=== PATIENT | male | born 1970 | race Caucasian/White ===

== ENCOUNTER 2020-08-21 17:03 | Emergency (ER) | payer OTHER, SELFPAY ==
[2020-08-21 17:10] VITALS: BP 133/83; PULSE 91; RESP 16; TEMP 36.1; O2SAT 99; BMI 30.8
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
[2020-08-21] MEDS: HYDROMORPHONE 1 MG INJ IM (17:29)
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
[2020-08-21] MEDS: HYDROCODONE/ACET 5/325 TABLET 1 TAB PO (18:28)
[2020-08-21 18:43] VITALS: BP 121/78; PULSE 80; RESP 18; TEMP 36.6; O2SAT 97
== END 2020-08-21 18:44 | disposition home or self-care (01) ==
PROVIDERS: Emergency Provider Emergency Medicine; PCP Family Medicine; Referring Provider Family Medicine
DX: S63.502A Unspecified sprain of left wrist, initial encounter (principal); V86.52XA Driver of snowmobile injured in nontraffic accident, initial encounter; Z87.81 Personal history of (healed) traumatic fracture
CPT/HCPCS: 73090; 73110; 96372; 99283; 99284; J1170

== ENCOUNTER → 2020-09-02 19:26 | Outpatient (CLI) | payer OTHER, SELFPAY ==
--- NOTE | 2020-09-02 19:28 | DI.MRI.S_ITS ---
PROCEDURE: MR WRIST LT WO CON INDICATIONS: LEFT WRIST PAIN TECHNIQUE: Noncontrast coronal proton density fast spin echo and T2 fast spin echo with fat saturation; coronal 3-D gradient echo, axial T1 spin echo and T2 fast spin echo with fat saturation, sagittal T1 spin echo through the wrist. COMPARISON: [facility], CR, XR WRIST LT MIN 3V, 08/21/2020, 17:29. FINDINGS: Image quality: Excellent. Bones and cartilage: Chronic appearing ulnar styloid fracture with no associated marrow edema. However, there is marked marrow edema present within the proximal and distal poles of the scaphoid. Possible nondisplaced fracture line seen within the proximal pole on image 15/6. There is mild edema present within the capitate and trapezoid, to a much lesser extent. Additional marrow edema present within the base of the 2nd metacarpal, mild. Carpal ligaments: The scapholunate and lunotriquetral ligaments appear intact. In the absence of intra-articular contrast, the extrinsic carpal ligaments are not well identified. On sagittal images, the pisohamate ligament appears intact. Triangular fibrocartilage complex: The triangular fibrocartilage appears intact. The adjacent meniscal homolog appears normal in the absence of intra-articular contrast. The extensor carpi ulnaris tendon is normal in location and morphology. Tendons and soft tissues: The carpal tunnel structures appear normal, including the median nerve. The ulnar nerve appears normal within Guyon's canal. Mild extensor carpi radialis longus and brevis tenosynovitis. No soft tissue ganglion cysts. IMPRESSION: Marked scaphoid marrow edema, suspicious for nondisplaced radiographically occult fracture as detailed above (versus severe marrow contusion). Mild extensor carpi radialis longus and brevis tenosynovitis Dictated by: Gavin Ordoñez M.D. on 09/03/2020 at 11:45 Approved by: Gavin Ordoñez M.D. on 09/03/2020 at 11:54
== END ==
PROVIDERS: PCP Family Medicine; Referring Provider Family Medicine; Visit Provider Family Medicine
DX: M25.532 Pain in left wrist (principal); M67.832 Other specified disorders of synovium, left wrist
CPT/HCPCS: 73221

== ENCOUNTER 2024-04-25 13:28 | Day surgery (SDC) | payer OTHER, SELFPAY ==
[2024-04-25 13:53] VITALS: BP 108/74; PULSE 66; RESP 12; TEMP 36.3; O2SAT 95
--- NOTE | 2024-04-25 14:28 | P.HP_ITS ---
History of Present Illness History of Present Illness Date Patient Seen: 04/25/24 Time Patient Seen: 14:28 Chief complaint: SDC Narrative: Jose is a 53-year-old man in need of colon cancer screening. He also has hemorrhoids. See the office note from February for details. [facility] Medical History (Updated 04/25/24 @ 14:29 by Brad English MD) Celiac artery dissection Healthy adult Family History (Updated 03/06/24 @ 14:34 by Brent Agosto RN) Father Hypertension Diabetes mellitus Heart disease Brother Hypertension Social History Smoking Status: Never smoker alcohol intake: current Meds Home Medications and Allergies Home Medications Medication Instructions Recorded Confirmed Type aspirin 81 mg tablet,delayed 81 mg PO DAILY 03/06/24 04/25/24 History release carvedilol 12.5 mg tablet 12.5 mg PO BID 03/06/24 04/25/24 History famotidine 20 mg tablet 20 mg PO DAILY 03/06/24 04/25/24 History rabeprazole 20 mg tablet,delayed 40 mg PO DAILY 03/06/24 04/25/24 History release rosuvastatin 20 mg tablet 20 mg PO DAILY 03/06/24 04/25/24 History Allergies Allergy/AdvReac Type Severity Reaction Status Date / Time No Known Drug Allergies Allergy Verified 04/25/24 13:42 Exam Vital Signs (past 8 hours): - 04/25/24 13:53 Temperature 97.3 F L Pulse Rate 66 Respiratory Rate 12 Blood Pressure 108/74 Pulse Oximetry 95 Oxygen Delivery Method Room Air Oxygen Delivery Method Room Air Const General: No acute distress Resp Effort & Inspection: normal respiratory effort Assessment & Plan Assessment and plan (1) Colon cancer screening: Status: Acute (2) Hemorrhoids: Qualifiers: Hemorrhoid type: second degree Qualified Code(s): K64.1 - Second degree hemorrhoids Status: Acute Plan Colonoscopy with rubber-band ligation of internal hemorrhoids Time-Based Coding :: [TOTAL MINUTES] spent with patient and on the chart (including review of chart, obtaining history, exam, reviewing outside data, placing orders, documenting exam and treatment plan, and counseling patient) on [DATE].
--- NOTE | 2024-04-25 15:39 | PM.OP.COLON ---
Operative Date/Time/Diagnoses Date of procedure: 04/25/24 Time of procedure: 15:39 Pre-op diagnosis: Colon cancer screening and internal hemorrhoids Post-op diagnosis: same Procedure & Clinicians Study performed: Colonoscopy Rubber-band ligation of internal hemorrhoids Same procedure as scheduled: Yes Surgeon: Brad English Procedure Notes Procedure in detail: Surgeon: Brad English MD Anesthesia: Hiram Brower [employer] Procedure: The patient was brought to the endoscopy suite, placed in left lateral decubitus position. The patient was connected to monitoring devices. A time-out was performed. Sedation was administered. Once the patient was adequately sedated, a digital rectal exam was performed. Internal and external hemorrhoids were noted. The scope was then inserted and advanced to the cecum where the appendiceal orifice was identified and photographed. The scope was then slowly withdrawn over greater than 6 minutes. The mucosa was thoroughly inspected. No abnormalities were identified. The scope was retroflexed in the rectum. Internal hemorrhoids were noted. The scope was straightened and removed. Rubber-band ligation was performed of to internal hemorrhoid columns. The patient was awakened and brought to recovery. Scope withdrawal time: 10 minutes Sedation time: 17 minutes EBL: 0 Findings: Internal and external hemorrhoids Post-procedure Recommendations: Colonoscopy in 10 years Disposition: PACU
[2024-04-25 15:40] VITALS: BP 124/88; PULSE 71; RESP 18; TEMP 36.9; O2SAT 93
[2024-04-25 15:45] VITALS: BP 124/92; PULSE 66; RESP 17; O2SAT 95
[2024-04-25 15:50] VITALS: BP 131/96; PULSE 63; RESP 18; TEMP 36.7; O2SAT 95
[2024-04-25 15:56] VITALS: BP 142/87; PULSE 63; RESP 19; TEMP 36.7; O2SAT 95
== END 2024-04-25 16:09 | disposition home or self-care (01) ==
PROVIDERS: PCP Family Medicine; Referring Provider Surgery; Visit Provider Surgery
PROC: 0DJD8ZZ Inspection of Lower Intestinal Tract, Via Natural or Artificial Opening Endoscopic (ICD-10-PCS; CPT 45378; principal; 2024-04-25 14:45)
DX: Z12.11 Encounter for screening for malignant neoplasm of colon (principal); K64.8 Other hemorrhoids; K64.4 Residual hemorrhoidal skin tags
CPT/HCPCS: 45378; 46221; J2704

== ENCOUNTER 2024-12-05 10:12 | Emergency (ER) | payer OTHER, SELFPAY ==
[2024-12-05] VITALS (13 sets, daily range): BP systolic 105–153; BP diastolic 64–91; PULSE 61–83; RESP 14–25; TEMP 36.4; O2SAT 94–98; BMI 33.0
[2024-12-05] MEDS: ONDANSETRON 4 MG/2 ML INJ IV (10:26)
--- NOTE | 2024-12-05 10:28 | ED.GENADULT ---
HPI - General Adult General Chief complaint: Abdominal Pain Stated complaint: Groin area pain , Pressure can't pee or poop Time Seen by Provider: 12/05/24 10:19 History of Present Illness HPI narrative: 54-year-old gentleman with a history of reflux, hypertension, hyperlipidemia, history of celiac artery dissection woke up this morning initially feeling well then develop some low abdominal pain/pressure. He voided and had a bowel movement with minimal relief. Went to work and symptoms escalated. He had 2 additional episodes of stool with formed stools, no diarrhea. No relieved the pain. He has begun vomiting has had at least 3 emesis episodes. Eyes belly feels distended, tender over the suprapubic area and now complaining of bilateral flank pain right greater than left. Most recent void was dark with concerns for hematuria. He has never had similar symptoms. No prior history of kidney stones, appendicitis or colitis. He notes that he does have some slow urination but no difficulty initiating stream and does not complain of frequency or urgency Related Data Home Medications ?Medication ?Instructions ?Recorded ?Confirmed aspirin 81 mg tablet,delayed 81 mg PO DAILY 03/06/24 04/25/24 release carvedilol 12.5 mg tablet 12.5 mg PO BID 03/06/24 04/25/24 famotidine 20 mg tablet 20 mg PO DAILY 03/06/24 04/25/24 rabeprazole 20 mg tablet,delayed 40 mg PO DAILY 03/06/24 04/25/24 release rosuvastatin 20 mg tablet 20 mg PO DAILY 03/06/24 04/25/24 Previous Rx's ?Medication ?Instructions ?Recorded oxycodone-acetaminophen 5 mg-325 1 tab PO Q6H PRN pain #14 tabs 12/05/24 mg tablet Allergies Allergy/AdvReac Type Severity Reaction Status Date / Time No Known Drug Allergies Allergy Verified 12/05/24 10:26 Review of Systems Review of Systems Narrative: Pertinent positive and negative findings as per HPI Patient History Medical History Celiac artery dissection Healthy adult Family History Father Hypertension Diabetes mellitus Heart disease Brother Hypertension Social History Smoking Status: Unknown if ever smoked alcohol intake: current Exam Initial Vital Signs Initial Vital Signs: Vital Signs Temperature 97.5 F L 12/05/24 10:13 Pulse Rate 82 12/05/24 10:13 Respiratory Rate 16 12/05/24 10:13 Blood Pressure 153/91 H 12/05/24 10:13 Pulse Oximetry 98 12/05/24 10:13 Oxygen Delivery Method Room Air 12/05/24 10:13 General: Pale, appears unwell, actively vomiting, able to cooperate with exam HEENT: Moist mucous membranes, normal sclera with reactive pupils, Respiratory: Lungs are clear to auscultation, no wheezing no rales no rhonchi. Full and symmetrical air movement Cardiac: Regular rate and rhythm no murmurs no bruits Abdomen: Distended, low pubic tenderness, no flank pain to palpation at this time. No rebound or guarding Skin: Pale, mildly diaphoretic Neurologic: Grossly neurologically intact with no obvious asymmetries or abnormalities Extremities: No trauma, well perfused Psych: Cooperative, appropriate insight and affect Course Orders Ordered: ED Orders 12/05/24 10:20 Ictotest Urine Stat Urinalysis and Microscopic Stat 12/05/24 10:27 CT abdomen pelvis w con Stat Complete Blood Count AUTO DIFF Stat Comprehensive Metabolic Panel Stat Lactate (Lactic Acid) Stat Lipase Stat Magnesium Stat Hydromorphone HCl (Hydromorphone Hcl 0.5 Mg/0.5 Ml Syringe) 0.5 mg IV Q15MIN PRN PRN Reason: Pain, Last Admin: 12/05/24 12:52 Dose: 0.5 mg Documented By: Admin: 12/05/24 10:38 Dose: 0.5 mg Documented By: RB Discontinued Medications Sodium Chloride (Normal Saline 0.9%) 1,000 mls @ 1,000 mls/hr IV BOLUS ONE Stop: 12/05/24 11:25 Last Admin: 12/05/24 10:38 Dose: 1,000 mls/hr Documented By: RB Ketorolac Tromethamine (Ketorolac 30 Mg/Ml Vial) 15 mg IV NOW ONE Stop: 12/05/24 10:27 Last Admin: 12/05/24 10:37 Dose: 15 mg Documented By: RB Ondansetron HCl (Ondansetron 4 Mg/2 Ml Inj) 4 mg IV NOW ONE Stop: 12/05/24 10:25 Last Admin: 12/05/24 10:26 Dose: 4 mg Documented By: SOLEDAD Ondansetron HCl (Ondansetron 4 Mg/2 Ml Inj) 4 mg IV NOW ONE Stop: 12/05/24 10:27 Last Admin: 12/05/24 10:39 Dose: Not Given Documented By: RB Vital Signs Vital signs: Vital Signs - 8 hr 12/05/24 10:13 12/05/24 10:22 12/05/24 10:22 Temperature 97.5 F L Pulse Rate 82 75 Respiratory Rate 16 Blood Pressure 153/91 H 153/91 H Pulse Oximetry 98 98 Oxygen Delivery Method Room Air 12/05/24 10:44 12/05/24 10:46 12/05/24 10:46 Temperature Pulse Rate 71 70 Respiratory Rate Blood Pressure 133/79 Pulse Oximetry 97 97 Oxygen Delivery Method 12/05/24 11:00 12/05/24 11:00 12/05/24 11:28 Temperature Pulse Rate 73 80 Respiratory Rate 16 14 Blood Pressure 122/71 Pulse Oximetry 96 97 Oxygen Delivery Method 12/05/24 11:28 12/05/24 11:30 12/05/24 11:30 Temperature Pulse Rate 80 Respiratory Rate 16 Blood Pressure 126/86 126/85 Pulse Oximetry 98 Oxygen Delivery Method 12/05/24 12:00 12/05/24 12:00 12/05/24 12:30 Temperature Pulse Rate 70 66 Respiratory Rate 22 20 Blood Pressure 117/70 Pulse Oximetry 94 94 Oxygen Delivery Method 12/05/24 12:30 Temperature Pulse Rate Respiratory Rate Blood Pressure 105/66 Pulse Oximetry Oxygen Delivery Method Medical Decision Making Lab Data 12/05/24 10:27 12/05/24 10:27 Labs: Lab Results 12/05/24 12/05/24 Range/Units 10:20 10:27 WBC 13.8 H (4.5-11.0) X10^3/uL RBC 5.08 (4.5-5.9) X10^6/uL Hgb 15.5 (13.5-17.5) g/dL Hct 45.5 (41-53) % MCV 89.6 (80-100) fL MCH 30.6 (26-34) PG MCHC 34.1 (30-36) % RDW 13.6 (11.6-14.8) % Plt Count 195 (150-400) X10^3/uL Neut % (Auto) 80.7 H (50-75) % Lymph % (Auto) 10.7 L (25-40) % Benson % (Auto) 7.4 (3-14) % Eos % (Auto) 0.8 L (2-4) % Baso % (Auto) 0.4 (0-2) % Neut # (Auto) 24614 H (1712-4133) /uL Lymph # (Auto) 1500 (1675-5673) /uL Benson # (Auto) 1000 H (0-900) /uL Eos # (Auto) 100 (0-450) /uL Baso # (Auto) 100 (0-100) /uL Sodium 137 (137-145) mmol/L Potassium 4.4 (3.4-5.1) mmol/L Chloride 103 (98-107) mmol/L Carbon Dioxide 26 (22-32) mmol/L BUN 23 H (9-20) mg/dL Creatinine 0.94 (0.66-1.25) mg/dL Estimated GFR > 60 (>60) mL/min BUN/Creatinine Ratio 24.5 H (6-22) Glucose 140 H (70-99) mg/dL Lactate 0.9 (0.7-2.1) mmol/L Calcium 9.3 (8.4-10.2) mg/dL Magnesium 1.7 (1.6-2.3) mg/dL Total Bilirubin 0.9 (0.2-1.3) mg/dL AST 32 (17-59) IU/L ALT 34 (<50) IU/L Alkaline Phosphatase 103 (38-126) U/L Total Protein 7.9 (6.3-8.2) g/dL Albumin 4.6 (3.5-5.0) g/dL Globulin 3.3 (1.7-4.1) g/dL Albumin/Globulin Ratio 1.4 (1.0-2.8) Lipase 48 (23-300) U/L Urine Color Red Urine Appearance Cloudy Urine pH 5.0 (4.5-8.0) Ur Specific [place] 1.025 (1.000-1.035) Urine Protein 2+ H (Negative) Urine Glucose (UA) Negative (Negative) g/dL Urine Ketones Trace H (NEGATIVE) Urine Occult Blood 3+ H (Negative) Urine Nitrate Negative (Negative) Urine Bilirubin 1+ H (NEGATIVE) Ur Bilirubin Confirm Negative (Negative) Urine Urobilinogen 1.0 (0.2) E.U./dL Ur Leukocyte Esterase Negative (NEGATIVE) Urine RBC >100/hpf H (0-5/HPF) Urine WBC None seen (0-5/HPF) Ur Squamous Epith Cells None seen (0-5/HPF) Urine Bacteria None seen (None) Ur Culture Indicated? Cult not indicated Vol Urine Centrifuged 10ml (spun) Imaging Data CT scan - abdomen/pelvis: Radiologist's Impression: PROCEDURE: CT ABDOMEN PELVIS W CON INDICATIONS: low pelvic and Right flank pain TECHNIQUE: After the administration of intravenous contrast, axial sections acquired from the lung bases to the pubic symphysis. Coronal and sagittal reformats were performed. For radiation dose reduction, the following was used: automated exposure control, adjustment of mA and/or kV according to patient size. COMPARISON: None. FINDINGS: Image quality: Diagnostic. Lower Chest: No significant findings. ABDOMEN: Liver: No solid mass. Gallbladder: No radiopaque gallstones or wall thickening. Biliary ducts: No biliary dilation. Pancreas: No ductal dilation. Spleen: Size is within normal limits. Adrenal Glands: No adrenal nodules. Kidneys and Ureters: No definite hydronephrosis can be seen on either side. No hydroureter can be seen. Within the bladder near the left ureterovesicular junction, there is a 2-3 mm stone seen, as on series 2, image 133 and on series 3 image 57. Mild hydronephrosis is seen. No nonobstructing stones can be seen within either kidney. Water density bilateral renal cysts are incidentally noted. Stomach and Bowel: The stomach is decompressed at the time of this study, limiting its evaluation. No dilated loops of small bowel are seen. Colonic diverticulosis is seen, without findings of active diverticulitis. Peritoneum: No abnormal intraperitoneal fluid. No free air. Ventral Wall: A moderate periumbilical hernia is seen, containing fat. Abdominal Nodes: No retroperitoneal or mesenteric adenopathy by size criteria. Vessels: Aorta and inferior vena cava are normal in size. PELVIS: Pelvic Organs: Unremarkable. Bladder: No bladder wall thickening, accounting for underdistention. Pelvic Nodes: No enlarged lymph nodes. Miscellaneous: Bilateral fat containing inguinal hernias can be seen. Bones: No aggressive osseous abnormality. Bilateral L5 pars defects are seen, with grade 1 L5-S1 anterolisthesis. Focal L5-S1 degenerative change is seen. Milder degenerative changes are seen elsewhere. IMPRESSION: There is a 2-3 mm stone seen at the LEFT ureterovesicular junction. There is a mild degree of RIGHT-sided hydronephrosis. Given the history of right-sided flank pain, this is most likely a right-sided stone that has recently passed into the bladder and has come to rest on the left side. Bilateral L5 pars defects can be seen, with associated grade 1 anterolisthesis and focal degenerative change. Additional findings: Moderate fat containing periumbilical hernia Diverticulosis, without active diverticulitis Bilateral fat containing inguinal hernias Dictated by: Ramses Delgado M.D. on 12/05/2024 at 11:34 MDM Narrative Medical decision making narrative: CC: Acute lower abdominal pain with vomiting Complicating co-morbidities: Hypertension, hyperlipidemia, history of the celiac artery dissection Data collected from: patient Medical records reviewed: Medical records include an ER visit in the colonoscopy Differential considered: Kidney stone, acute appendicitis, bowel obstruction, urinary tract infection, bladder stone, complication with this prostate Exam documented above, pertinent findings include: Appears quite uncomfortable, actively vomiting, distended abdomen suprapubic tenderness without rebound or guarding. He does not have acute flank pain and he does not have an acute surgical abdomen at this time Lab Test results independently reviewed as above. Pertinent findings: CBC shows mild leukocytosis at 13.8 with significant left shift. No anemia Chemistries show appropriate renal function, minimally elevated glucose, Liver studies are normal Lipase is normal Urine has red blood cells and occult blood Imaging studies independently reviewed: CT scan There is a 2-3 mm stone seen at the LEFT ureterovesicular junction. There is a mild degree of RIGHT-sided hydronephrosis. Given the history of right-sided flank pain, this is most likely a right-sided stone that has recently passed into the bladder and has come to rest on the left side. Treatments: Fluid, Zofran, Dilaudid, Toradol Discussion: The patient is re-evaluated. Pain is significantly improved down to a dull ache consistent with a recently passed kidney stone. Discussed all of his findings with him. As the stone has passed I do not think that he needs Flomax however maybe worth a discussion with his primary care physician given his urinary symptoms overall. We will be discharged home with Percocet to help with pain control. He has not appointment with his primary care physician coming up next week we will make sure he has copies of blood work and CT scans to help with that continuity of care. There was no indication of acute surgical abdomen, need for urologic consultation or hospitalization. Questions are answered and he is safe for discharge Discharge Plan Departure Patient Disposition: Home Clinical Impression: Calculus of kidney Instructions: DI for Kidney Stones Activity Restrictions/Additional Instructions: Thank you for coming in today. It looks like you successfully passed a 2-3 mm kidney stone on the right side. It is sitting in your bladder on the CT scan. As explains the significant pain, the acute onset and the blood in your urine. There was no evidence of infection or reason for any type of surgical consultation From your bladder out should not be problematic. I would recommend that you continue to drink plenty of fluids. You are going to have pain for a couple of days, typically feels like a dull ache. Using 400 mg of ibuprofen (2 [id number] pills) and 1 Tylenol every 6 hours can be very helpful in controlling pain. For severe pain you can add 1 Percocet to that. Percocet is a narcotic, we will cause constipation and does need to be taken with a stool softener Prescription for Percocet was sent to [facility] in [place] I have given you copies of the blood work as well as the CT scan done in the emergency department for you to share with your primary care physician in your follow up appointment next week If you find that you are getting worse or develop any new symptoms, please feel free to return to the emergency department for further evaluation. Prescriptions: New oxycodone-acetaminophen 5-325 mg tablet 1 tab PO Q6H PRN (Reason: pain) Qty: 14 0RF No Action rabeprazole 20 mg tablet,delayed release (DR/EC) 40 mg PO DAILY carvedilol 12.5 mg tablet 12.5 mg PO BID Rx Instructions: must administer with a meal/food aspirin 81 mg tablet,delayed release (DR/EC) 81 mg PO DAILY rosuvastatin 20 mg tablet 20 mg PO DAILY famotidine 20 mg tablet 20 mg PO DAILY Referrals: Villegas,Sissy, DO [Primary Care Provider, Medical] Stand Alone Forms: Patient Portal/API
[2024-12-05 10:32] LABS: Appearance Urine UA CLOUDY; Bilirubin Urine UA 1+ (NEGATIVE); Color Urine UA RED; Glucose Urine UA NEGATIVE (Negative); Ketones Urine UA TRACE (NEGATIVE); Leukocyte Esterase Urine UA NEGATIVE (NEGATIVE); Nitrite Urine UA NEGATIVE (Negative); Occult Blood Urine UA 3+ (Negative); Protein Urine UA 2+ (Negative); Specific Gravity Urine UA 1.025 (1.000-1.035); Urobilinogen Urine UA 1.0 E.U./dL (0.2); pH Urine UA 5.0 (4.5-8.0)
[2024-12-05 10:35] LABS: Add Manual Diff / Slide Review NO; Hematocrit 45.5 % (41-53); Hemoglobin 15.5 g/dL (13.5-17.5); Lymphocytes Absolute Auto 1500 /uL (1100-4500); Mean Corpuscular HGB Conc 34.1 % (30-36); Mean Corpuscular Hemoglobin 30.6 PG (26-34); Mean Corpuscular Volume 89.6 fL (80-100); Platelet Count 195 X10^3/uL (150-400)
[2024-12-05 10:35] LABS: Culture Indicated Urine Cult Not Indicated; Ictotest Urine Negative (Negative)
[2024-12-05] MEDS: KETOROLAC 30 MG/ML VIAL 15 MG IV (10:37)
[2024-12-05] MEDS: SODIUM CHLORIDE 0.9% 1,000 ML 1000 ML IV (10:38)
[2024-12-05 10:49] LABS: Alanine Aminotransferase 34 IU/L (<50); Albumin 4.6 g/dL (3.5-5.0); Albumin Globulin Ratio 1.4 (1.0-2.8); Alkaline Phosphatase 103 U/L (38-126); Blood Urea Nitrogen 23 mg/dL (9-20); Calcium 9.3 mg/dL (8.4-10.2); Carbon Dioxide 26 mmol/L (22-32); Chloride 103 mmol/L (98-107); Estimated Glomerular Filt Rate > 60 mL/min (>60); Globulin 3.3 g/dL (1.7-4.1); Glucose 140 mg/dL (70-99); HEMOLYSIS < 15 (0-50); Lipase 48 U/L (23-300); Magnesium 1.7 mg/dL (1.6-2.3); Potassium 4.4 mmol/L (3.4-5.1); Sodium 137 mmol/L (137-145); Total Protein 7.9 g/dL (6.3-8.2)
[2024-12-05 10:50] LABS: Lactate (Lactic Acid) 0.9 mmol/L (0.7-2.1)
--- NOTE | 2024-12-05 11:16 | PC.NURSE ---
patient appears to not be in distress. his pain is 2/10 after pain medication. vital signs are WNL at this time. his abd is round but the pt states it does not feel abnormally taught for him. his bowl tones are active in all 4 quadrants, he is none tender on his bilateral flanks. He denies nausea at this time. his skin is warm pink and dry. He does state that his brother had kidney stones so bad that he had to have them removed and then after complications of dialysis/ sepsis.
[2024-12-05] MEDS: OXYCODONE/ACETAMINOPHEN 5/325 TABLET 1 TAB PO (13:30)
== END 2024-12-05 13:41 | disposition home or self-care (01) ==
PROVIDERS: Emergency Provider Emergency Medicine; PCP Family Medicine
DX: N20.0 Calculus of kidney (principal)
CPT/HCPCS: 36415; 51798; 74177; 80053; 81001; 83605; 83690; 83735; 85025; 96361; 96374; 96375; 96376; 99284; J1171; J1885; J2405; Q9967